=== PATIENT | male | born 1990 | race Caucasian/White ===

== ENCOUNTER 2017-07-06 04:05 | Emergency (ER) | payer OTHER ==
[~2017-07-06] VITALS: Ht 172.7 cm; Wt 70.3 kg
[2017-07-06 04:53] LABS: HEMATOCRIT 42.1 % (42.0-52.0); HEMOGLOBIN 14.3 gm/dL (14.0-18.0); MCH 29.9 pg (26.0-34.0); MCHC 33.9 g/dL (28.0-37.0); MCV 88.3 fL (80.0-100.0); RBC 4.77 mil/uL (4.50-6.00); RDW 12.9 % (10.5-14.5)
[2017-07-06 05:03] LABS: CALCIUM 9.7 mg/dL (8.5-10.1); CREATININE 0.8 mg/dL (0.7-1.3); POTASSIUM 3.6 mmol/L (3.5-5.1)
[2017-07-06 05:09] LABS: TOTAL BILIRUBIN 0.3 mg/dL (<0.1-1.0); TOTAL PROTEIN 8.2 g/dL (6.4-8.2)
[2017-07-06 05:57] LABS: CSF CLARITY CLEAR; CSF COLOR COLORLESS; VOLUME 4 ml
[2017-07-06 06:02] LABS: CSF GLUCOSE 67 mg/dL (40-70)
[2017-07-06 06:04] LABS: CSF RBC 1 /mm3; CSF WBC 1 /mm3 (0-10)
[2017-07-06] MEDS ORDERED: AUGMENTIN 875-1 EACH PO (06:33)
== END 2017-07-06 07:45 | disposition home or self-care (01) ==
LOC: ER 04:05
PROVIDERS: Emergency Medicine
DX: J32.9 Chronic sinusitis, unspecified (principal)